=== PATIENT | female | born 1990 | race African-American/Black ===

== ENCOUNTER 2017-10-13 14:14 | Emergency (ER) | payer BC ==
--- NOTE | 2017-10-13 14:47 | ER Document Report ---
ED Medical Screen (RME) - General Chief Complaint: Passed Out Prior to Arrival Stated Complaint: POSSIBLE SYNCOPAL EPISODE Time Seen by Provider: 10/13/17 14:41 Notes: 27-year-old female here status post syncopal episode. She states that she was feeling weak all over her body prior to passing out. She denies lightheadedness dizziness chest pain shortness of breath. Her prehospital EMS blood sugar was 80. She currently has a headache but cannot tell me if the headache was present prior to the syncopal episode. She has congenital nystagmus. EXAM Strength 5/5 all extremities with intact sensation Minimal tenderness to palpation posterior scalp without lesions Left beating non-fatigable nystagmus (patient's baseline per her report) TRAVEL OUTSIDE OF THE [place] IN LAST 30 DAYS: No - Related Data Allergies/Adverse Reactions: No Known Allergies Allergy (Verified 10/13/17 14:16) Past Medical History Neurological Medical History: Reports: Hx Migraine, Hx Seizures Past Surgical History: Reports: Hx Section - Immunizations Immunizations up to date: Yes Hx Diphtheria, Pertussis, Tetanus Vaccination: Yes Physical Exam - Vital signs Vitals: Temp Pulse Resp BP Pulse Ox 98.4 F 72 13 132/82 H 100 10/13/17 14:21 10/13/17 14:21 10/13/17 14:21 10/13/17 14:21 10/13/17 14:21 Course - Vital Signs Vital signs: Temp Pulse Resp BP Pulse Ox 98.4 F 72 13 132/82 H 100 10/13/17 14:21 10/13/17 14:21 10/13/17 14:21 10/13/17 14:21 10/13/17 14:21
[2017-10-13] MEDS ORDERED: ACETAMINOPHEN 325 MG TABLET PO ONE (14:48)
[2017-10-13 15:36] LABS: ABSOLUTE EOSINOPHILS # (AUTO) 0.1 10^3/uL (0.0-0.6); ABSOLUTE LYMPHOCYTES (AUTO) 2.5 10^3/uL (0.5-4.7); ABSOLUTE MONOCYTES (AUTO) 0.2 10^3/uL (0.1-1.4); ABSOLUTE NEUT (AUTO) 2.1 10^3/uL (1.7-8.2); BASOPHILS % (AUTO) 0.6 % (0-2); EOSINOPHILS % (AUTO) 1.4 % (0-6); HEMATOCRIT 27.2 % (36.0-47.0); HEMOGLOBIN 8.5 g/dL (12.0-15.5); LYMPHOCYTES % (AUTO) 50.7 % (13-45); MEAN CORPUSCULAR HEMOGLOBIN 22.9 pg (27.0-33.4); MEAN CORPUSCULAR HGB CONC 31.1 g/dL (32.0-36.0); MEAN CORPUSCULAR VOLUME 74 fl (80-97); MONOCYTES % (AUTO) 4.8 % (3-13); PLATELET COUNT 168 10^3/uL (150-450); RED BLOOD COUNT 3.71 10^6/uL (3.72-5.28); RED CELL DISTRIBUTION WIDTH 16.7 % (11.5-14.0); SEGMENTED NEUTROPHILS % (AUTO) 42.5 % (42-78); TOTAL CELLS COUNTED % (AUTO) 100 %; WHITE BLOOD COUNT 4.9 10^3/uL (4.0-10.5)
[2017-10-13 15:45] LABS: ANION GAP 12 (5-19); BLOOD UREA NITROGEN 9 mg/dL (7-20); CALCIUM 9.6 mg/dL (8.4-10.2); CARBON DIOXIDE 26 mmol/L (22-30); CHLORIDE 105 mmol/L (98-107); GLUCOSE 80 mg/dL (75-110); MAGNESIUM 1.8 mg/dL (1.6-2.3); POTASSIUM 3.5 mmol/L (3.6-5.0); SODIUM 142.6 mmol/L (137-145)
--- NOTE | 2017-10-13 15:45 | RADIOLOGY REPORT (SQ) ---
EXAM DESCRIPTION: CT HEAD WITHOUT COMPLETED DATE/TIME: 10/13/2017 3:28 pm REASON FOR STUDY: MILLAN syncope s/p fall COMPARISON: CT brain 11/13/2015, 01/09/2009 TECHNIQUE: Axial images acquired through the brain without intravenous contrast. Images reviewed wi th bone, brain and subdural windows. Images stored on PACS. All CT scanners at this facility use dose modulation, iterative reconstruction, and/or weight based d osing when appropriate to reduce radiation dose to as low as reasonably achievable (ALARA). [facility]: Dose Right [facility]: CareDose [facility]: Dose Right [facility]: Teradose 4D [facility]: Celiro RADIATION DOSE: CT Rad equipment meets quality standard of care and radiation dose reduction techniq ues were employed. CTDIvol: 64.6 mGy. DLP: 1163 mGy-cm. mGy. LIMITATIONS: None. FINDINGS: VENTRICLES: Normal size and contour. CEREBRUM: No masses. No hemorrhage. No midline shift. No evidence for acute infarction. Normal gra y/white matter differentiation. No areas of low density in the white matter. CEREBELLUM: No masses. No hemorrhage. No alteration of density. No evidence for acute infarction. EXTRAAXIAL SPACES: No fluid collections. No masses. ORBITS AND GLOBE: No intra- or extraconal masses. Normal contour of globe without masses. CALVARIUM: No fracture. PARANASAL SINUSES: No fluid or mucosal thickening. SOFT TISSUES: No mass or hematoma. OTHER: No other significant finding. IMPRESSION: NORMAL BRAIN CT WITHOUT CONTRAST. EVIDENCE OF ACUTE STROKE: NO. COMMENT: Quality ID # [id number]: Final reports with documentation of one or more dose reduction techniques (e.g., Automated exposure control, adjustment of the mA and/or kV according to patient size, use of iterative reconstruction technique) TECHNICAL DOCUMENTATION: JOB ID: [id number] [employer]- All Rights Reserved
--- NOTE | 2017-10-13 15:52 | ER Document Report ---
ED Syncope and Near Syncope - General Chief Complaint: Passed Out Prior to Arrival Stated Complaint: POSSIBLE SYNCOPAL EPISODE Time Seen by Provider: 10/13/17 14:41 Mode of Arrival: Ambulatory Information source: Patient Notes: Patient is a 27-year-old female with a history of iron deficiency anemia who presents to the ER today for syncopal episode at work prior to arrival. Patient states that she felt weak and lightheaded and next thing she knew she was waking up on the floor. She denies any nausea or vomiting, dizziness, pain anywhere. Patient has never had to have any blood transfusions or iron transfusions. She used to be on iron but is not any longer because she has not followed up with her doctor. TRAVEL OUTSIDE OF THE [place] IN LAST 30 DAYS: No - Related Data Allergies/Adverse Reactions: No Known Allergies Allergy (Verified 10/13/17 14:16) Past Medical History - General Information source: Patient - Social History Smoking Status: Never Smoker Chew tobacco use (# tins/day): No Frequency of alcohol use: None Drug Abuse: None Family History: Reviewed & Not Pertinent Patient has suicidal ideation: No Patient has homicidal ideation: No Neurological Medical History: Reports: Hx Migraine, Hx Seizures Renal/ Medical History: Denies: Hx Peritoneal Dialysis Past Surgical History: Reports: Hx Section - Immunizations Immunizations up to date: Yes Hx Diphtheria, Pertussis, Tetanus Vaccination: Yes Review of Systems - Review of Systems Constitutional: See HPI EENT: No symptoms reported Cardiovascular: No symptoms reported Respiratory: No symptoms reported Gastrointestinal: No symptoms reported Genitourinary: No symptoms reported Female Genitourinary: No symptoms reported Musculoskeletal: No symptoms reported Skin: No symptoms reported Hematologic/Lymphatic: No symptoms reported Neurological/Psychological: See HPI Physical Exam - Vital signs Vitals: Temp Pulse Resp BP Pulse Ox 98.4 F 72 13 132/82 H 100 10/13/17 14:21 10/13/17 14:21 10/13/17 14:21 10/13/17 14:21 10/13/17 14:21 - Notes Notes: PHYSICAL EXAMINATION: GENERAL: Well-appearing and in no acute distress. HEAD: Atraumatic, normocephalic. EYES: Horizontal nystagmus, pupils equal round and reactive to light, extraocular movements intact, sclera anicteric, conjunctiva are normal. ENT: ear canals without erythema or foreign body, TMs pearly mccallum with good bony landmarks, nares patent, oropharynx clear without exudates. Moist mucous membranes. NECK: Normal range of motion, supple without lymphadenopathy LUNGS: CTAB and equal. No wheezes rales or rhonchi. HEART: Regular rate and rhythm without murmurs ABDOMEN: Soft, no tenderness. No guarding, no rebound BACK: no vertebral tenderness, normal ROM GI/: no CVA tenderness EXTREMITIES: Normal range of motion, no pitting edema. No cyanosis. NEUROLOGICAL: Cranial nerves grossly intact. Normal sensory/motor exams. PSYCH: Normal mood, normal affect. SKIN: Warm, Dry, normal turgor, no rashes or lesions noted Course - Re-evaluation Re-evalutation: 10/13/17 19:31 EKG reveals normal sinus rhythm without evidence of ischemia or abnormality, patient's hemoglobin here is 8.5. I will place her on iron and have her follow- up with her primary care provider. I did give her a list here primary care providers in the area. - Vital Signs Vital signs: Temp Pulse Resp BP Pulse Ox 97.8 F 65 16 140/87 H 99 10/13/17 16:36 10/13/17 16:36 10/13/17 16:36 10/13/17 16:36 10/13/17 16:36 - Laboratory Result Diagrams: 10/13/17 15:10 10/13/17 15:10 Laboratory results interpreted by me: 10/13/17 10/13/17 15:10 15:10 RBC 3.71 L Hgb 8.5 L Hct 27.2 L MCV 74 L MCH 22.9 L MCHC 31.1 L RDW 16.7 H Lymphocytes % 50.7 H Potassium 3.5 L Discharge - Discharge Clinical Impression: Syncope and collapse Iron deficiency anemia Qualifiers: Iron deficiency anemia type: unspecified iron deficiency Qualified Code(s): D50.9 - Iron deficiency anemia, unspecified Condition: Stable Disposition: HOME, SELF-CARE Additional Instructions: Please take stool softeners, Colace, [id number] as well as the iron as it can cause you to be constipated. Return immediately for any new or worsening symptoms. Follow up with primary care provider, call tomorrow to make followup appointment. Prescriptions: Ferrous Sulfate 325 mg PO DAILY #30 tablet Forms: Return to Work
[2017-10-13 16:39] VITALS: BP 140/87
--- NOTE | 2017-10-13 18:18 | EKG REPORT ---
SEVERITY:- NORMAL ECG - SINUS RHYTHM : Confirmed by: Edgar Mariscal MD 13-Oct-2017 18:18:14
== END 2017-10-13 16:44 | disposition home or self-care (01) ==
LOC: ER 14:14
DX: D50.9 Iron deficiency anemia, unspecified (principal); R55 Syncope and collapse; R53.1 Weakness; R42 Dizziness and giddiness
CPT/HCPCS: 36415; 70450; 80048; 81025; 83735; 84100; 85025; 93005; 93010; 99284

== ENCOUNTER 2017-10-27 21:06 | Emergency (ER) | payer OTHER, BC ==
[2017-10-28] MEDS ORDERED: IBUPROFEN 600 MG TABLET PO ONE (00:15)
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
[2017-10-28 02:35] VITALS: BP 106/64
== END 2017-10-28 02:20 | disposition home or self-care (01) ==
LOC: ER 21:06
DX: S16.1XXA Strain of muscle, fascia and tendon at neck level, initial encounter (principal); S39.012A Strain of muscle, fascia and tendon of lower back, initial encounter; R03.0 Elevated blood-pressure reading, without diagnosis of hypertension; R51 Headache; V43.52XA Car driver injured in collision with other type car in traffic accident, initial encounter
CPT/HCPCS: 72050; 72110; 99283

== ENCOUNTER 2018-04-03 13:35 | Emergency (ER) | payer BC, OTHER ==
--- NOTE | 2018-04-03 14:11 | ER Document Report ---
ED General <NANCY VERMA García - Last Filed: 04/03/18 17:12> - General Mode of Arrival: Medic Information source: Patient TRAVEL OUTSIDE OF THE [place] 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 Patient states she was at work at [employer], waiting to be relieved for lunch when she became light headed, dizzy, developed heart palpitations and hot then proceeded to have a syncopal episode. She states she fell on the floor and hit her head. Patient states she has had multiple syncopal episodes in the past with mother stating it appears to happen around the time the patient get her menstrual cycle. Patient denies any weakness in extremities, fevers or recent illnesses. Patient states her last menstrual cycle was approximately 1 week ago. (VADIM KLEIN) - Related Data Allergies/Adverse Reactions: No Known Allergies Allergy (Verified 10/13/17 14:16) Past Medical History - General Information source: Patient - Social History Smoking Status: Unknown if Ever Smoked Family History: Reviewed & Not Pertinent Neurological Medical History: Reports: Hx Migraine, Hx Seizures Past Surgical History: Reports: Hx Section - Immunizations Immunizations up to date: Yes Hx Diphtheria, Pertussis, Tetanus Vaccination: Yes <VADIM KLEIN - Last Filed: 04/03/18 18:54> Review of Systems - Review of Systems Constitutional: No symptoms reported EENT: No symptoms reported Cardiovascular: See HPI, Palpitations, Syncope, Dizziness, Lightheaded Respiratory: No symptoms reported Gastrointestinal: No symptoms reported Genitourinary: No symptoms reported Female Genitourinary: No symptoms reported Musculoskeletal: No symptoms reported Skin: No symptoms reported Hematologic/Lymphatic: No symptoms reported Neurological/Psychological: See HPI -: Yes All other systems reviewed and negative <VADIM KLEIN - Last Filed: 04/03/18 18:54> Physical Exam <NANCY VERMA - Last Filed: 04/03/18 17:12> <VADIM KLEIN - Last Filed: 04/03/18 18:54> - Vital signs Vitals: Resp 21 H 04/03/18 13:44 - Notes Notes: GENERAL: Alert, interacts well. No acute distress. HEAD: Normocephalic, atraumatic. EYES: Pupils equal, round, and reactive to light. Extraocular movements intact. Right deviation of right eye medially, consistent with history of nystigmatism. ENT: Oral mucosa dry, tongue midline. NECK: Full range of motion. Supple. Trachea midline. LUNGS: Clear to auscultation bilaterally, no wheezes, rales, or rhonchi. No respiratory distress. HEART: Regular rate and rhythm. No murmurs, gallops, or rubs. EXTREMITIES: Moves all 4 extremities spontaneously. NEUROLOGICAL: Alert and oriented x3. Normal speech. cranial nerves II through XII grossly intact. Sensory and motor functions grossly intact. PSYCH: Normal affect, normal mood. SKIN: Warm, dry, normal turgor. No rashes or lesions noted. (VADIM KLEIN) Course - Laboratory Result Diagrams: 04/03/18 13:10 04/03/18 13:10 <NANCY VERMA - Last Filed: 04/03/18 17:12> - Laboratory Result Diagrams: 04/03/18 13:10 04/03/18 13:10 <VADIM KLEIN - Last Filed: 04/03/18 18:54> - Re-evaluation Re-evalutation: 04/03/18 17:12 Patient well-appearing labs within normal limits nonsignificant of the microcytic anemia. Iron panel drawn patient shows very low levels of iron. Will place patient on iron supplementation. 04/03/18 17:13 She does not show any signs of diabetes blood glucose within normal limits. She has a history of having these types of episodes unsure if this was seizure related or possible syncopal reaction however per HPI this is happening multiple times in the last several years. Will refer patient for outpatient follow-up at this time. (NANCY VERMA) - Vital Signs Vital signs: Temp Pulse Resp BP Pulse Ox 97.8 F 11 L 102/67 98 04/03/18 17:24 04/03/18 17:12 04/03/18 17:12 04/03/18 17:08 - Laboratory Laboratory results interpreted by me: 07/03/18 07/03/18 13:10 13:10 Hgb 9.0 L Hct 28.4 L MCV 75 L MCH 23.9 L MCHC 31.8 L RDW 15.2 H Lymphocytes % 47.4 H Iron 17.2 L Ferritin 3.50 L Discharge <NANCY VERMA - Last Filed: 04/03/18 17:12> <VADIM KLEIN - Last Filed: 04/03/18 18:54> - Discharge Clinical Impression: Syncopal episodes Qualifiers: Syncope type: unspecified Qualified Code(s): R55 - Syncope and collapse Anemia Qualifiers: Anemia type: iron deficiency Iron deficiency anemia type: unspecified iron deficiency Qualified Code(s): D50.9 - Iron deficiency anemia, unspecified Disposition: HOME, SELF-CARE Instructions: Anemia, Iron Deficiency ([facility]), Syncopal Episode ([facility]) Prescriptions: Ferrous Sulfate 325 mg PO BID #60 tablet Referrals: RACHAEL PRESLEY MD [ACTIVE STAFF] - Follow up in 1 week Scribe Documentation - Scribe Written by Reagane:: Susana Hernandez, 04/03/2018 14:29 acting as scribe for :: Jerson <VADIM KLEIN - Last Filed: 04/03/18 18:54>
[2018-04-03] MEDS ORDERED: NORMAL SALINE 1000 ML 1,000 ML IV ONE (14:14)
[2018-04-03 14:38] LABS: ABSOLUTE EOSINOPHILS # (AUTO) 0.1 10^3/uL (0.0-0.6); ABSOLUTE MONOCYTES (AUTO) 0.4 10^3/uL (0.1-1.4); ABSOLUTE NEUT (AUTO) 2.8 10^3/uL (1.7-8.2); BASOPHILS % (AUTO) 0.6 % (0-2); EOSINOPHILS % (AUTO) 1.9 % (0-6); HEMATOCRIT 28.4 % (36.0-47.0); LYMPHOCYTES % (AUTO) 47.4 % (13-45); MEAN CORPUSCULAR HEMOGLOBIN 23.9 pg (27.0-33.4); MEAN CORPUSCULAR HGB CONC 31.8 g/dL (32.0-36.0); MEAN CORPUSCULAR VOLUME 75 fl (80-97); MONOCYTES % (AUTO) 5.8 % (3-13); PLATELET COUNT 209 10^3/uL (150-450); RED BLOOD COUNT 3.77 10^6/uL (3.72-5.28); RED CELL DISTRIBUTION WIDTH 15.2 % (11.5-14.0); SEGMENTED NEUTROPHILS % (AUTO) 44.3 % (42-78); TOTAL CELLS COUNTED % (AUTO) 100 %; WHITE BLOOD COUNT 6.3 10^3/uL (4.0-10.5)
[2018-04-03 14:46] LABS: ALANINE AMINOTRANSFERASE 21 U/L (9-52); ALBUMIN 4.4 g/dL (3.5-5.0); ALKALINE PHOSPHATASE 49 U/L (38-126); ANION GAP 14 (5-19); ASPARTATE AMINO TRANSFERASE 23 U/L (14-36); BILIRUBIN,DIRECT 0.3 mg/dL (0.0-0.4); BILIRUBIN,TOTAL 0.3 mg/dL (0.2-1.3); BLOOD UREA NITROGEN 18 mg/dL (7-20); CALCIUM 9.4 mg/dL (8.4-10.2); CARBON DIOXIDE 25 mmol/L (22-30); CHLORIDE 104 mmol/L (98-107); GLUCOSE 83 mg/dL (75-110); SODIUM 142.8 mmol/L (137-145)
[2018-04-03 15:05] LABS: APPEARANCE,URINE CLEAR; BILIRUBIN,URINE NEGATIVE (NEGATIVE); COLOR,URINE STRAW; GLUCOSE, URINE NEGATIVE (NEGATIVE); KETONES,URINE NEGATIVE (NEGATIVE); LEUKOCYTE ESTERASE,URINE NEGATIVE (NEGATIVE); NITRITE,URINE NEGATIVE (NEGATIVE); PROTEIN,URINE NEGATIVE (NEGATIVE); URINE SPECIFIC GRAVITY 1.013; UROBILINOGEN,URINE NEGATIVE mg/dL (<2.0)
[2018-04-03 15:25] LABS: ABSOLUTE RETICS # 0.072 10^6/uL (0.028-0.122); RETICULOCYTE COUNT (AUTO) 1.89 % (0.66-2.85)
[2018-04-03 15:41] LABS: IRON(TIBC) 17.2 ug/dL (37-170)
[2018-04-03 15:47] LABS: URINE AMPHETAMINES SCREEN NEGATIVE; URINE BARBITURATES SCREEN NEGATIVE; URINE BENZODIAZEPINES SCREEN NEGATIVE; URINE COCAINE SCREEN NEGATIVE; URINE MARIJUANA (THC) SCREEN NEGATIVE; URINE METHADONE SCREEN NEGATIVE; URINE PHENCYCLIDINE SCREEN NEGATIVE
[2018-04-03 17:19] VITALS: BP 102/67
== END 2018-04-03 17:25 | disposition home or self-care (01) ==
LOC: ER 13:35
DX: R55 Syncope and collapse (principal); D50.9 Iron deficiency anemia, unspecified; H55.00 Unspecified nystagmus; R00.2 Palpitations; R42 Dizziness and giddiness
CPT/HCPCS: 99284; 96360; 36415; 82607; 82728; 82746; 83540; 83550; 83735; 84443; 84703; 85025; 85045; 80053; 81001; 80307; J7030

== ENCOUNTER 2018-11-05 18:50 | Emergency (ER) | payer BC ==
[2018-11-05] MEDS ORDERED: ACETAMINOPHEN 325 MG TABLET PO ONE (21:52)
[2018-11-05] MEDS ORDERED: ACETAMINOPHEN 325 MG TABLET ONE (21:52)
--- NOTE | 2018-11-05 22:37 | ER Document Report ---
ED Cardiac - General Chief Complaint: Chest Wall Pain Stated Complaint: CHEST PAIN Time Seen by Provider: 11/05/18 22:36 Mode of Arrival: Ambulatory Information source: Patient Notes: HISTORY OF PRESENT ILLNESS: Patient is a 28-year-old female with no significant past medical history who presents with chest pain. Patient denies taking oral contraceptives, no recent trips or surgical procedures, no prolonged periods of immobility, does not smoke. Location: Left-sided "under my breast" Onset: Sudden Alleviation: None Provocation: Using the left arm, moving Quality: Sharp Radiation: None Severity: Currently mild, moderate at its worst Timing: Intermittent History of CAD: None Associated symptoms: Denies cough or congestion, no fevers or chills, no shortness of breath, no swelling of the extremities REVIEW OF SYSTEMS: CONSTITUTIONAL : Denies fever or chills, no sweats. Denies recent illness. EENT: Denies eye, ear, throat, or mouth pain or symptoms. Denies nasal or sinus congestion. CARDIOVASCULAR: Positive for chest pain. Denies swelling of the legs. RESPIRATORY: Denies cough, cold, or chest congestion. Denies shortness of breath or difficulty breathing. Denies wheezing. GASTROINTESTINAL: Denies abdominal pain. Denies nausea, vomiting, or diarrhea. Denies constipation. GENITOURINARY: Denies difficulty urinating, painful urination, burning, frequency, or blood in urine. FEMALE GENITOURINARY: Denies vaginal bleeding, abnormal or irregular periods. MUSCULOSKELETAL: Denies neck or back pain or joint pain or swelling. SKIN: Denies rash or skin lesions. HEMATOLOGIC : Denies easy bruising or bleeding. LYMPHATIC: Denies swollen, enlarged glands. NEUROLOGICAL: Denies altered mental status or loss of consciousness. Denies headache. Denies weakness or paralysis or loss of use of either side. Denies problems with gait or speech. Denies sensory or motor loss. PSYCHIATRIC: Denies anxiety or stress or depression. All other systems reviewed and negative. PHYSICAL EXAMINATION: GENERAL: Well-appearing, well-nourished and in no acute distress. HEAD: Atraumatic, normocephalic. No scalp deformity, depression, or crepitance. EYES: Pupils are 3 mm and equal/round/reactive to light, extraocular movements intact, sclera anicteric, conjunctiva are normal. ENT: Nares patent bilaterally, oropharynx. Moist mucous membranes. No tonsil hypertrophy. NECK: Normal range of motion, supple without lymphadenopathy. LUNGS: Breath sounds present, equal, and clear to auscultation bilaterally. No wheezes, rales, or rhonchi. CHEST: Easily reproducible tenderness on palpation to the left inferior and lateral rib cage. HEART: Regular rate and rhythm without murmurs, rubs, or gallops. 2+ peripheral pulses. Normal capillary refill. ABDOMEN: Soft, nontender, nondistended. Normoactive bowel sounds. No guarding, no rebound. No masses appreciated. BACK: Normal contour, no midline tenderness. Rectal exam deferred. GENITAL/PELVIC: Deferred. EXTREMITIES: Normal range of motion, no pitting or edema. No cyanosis. NEUROLOGICAL: No focal neurological deficits. Moves all extremities spontaneously and on command. PSYCH: Normal mood, normal affect. No suicidal thoughts/ideations. No homocidal thoughts/ideations. No hallucinations. SKIN: Warm, dry, normal turgor, no rashes or lesions noted. ASSESSMENT AND PLAN: This patient is a 28-year-old female who presents with chest pain that has consistent with noncardiac etiology such as costochondritis. 1. Will obtain EKG, chest x-ray, and reassess after intramuscular Toradol. 2. Will likely discharge. TRAVEL OUTSIDE OF THE [place] IN LAST 30 DAYS: No - Related Data Allergies/Adverse Reactions: No Known Allergies Allergy (Verified 10/13/17 14:16) Past Medical History - General Information source: Patient - Social History Smoking Status: Never Smoker Chew tobacco use (# tins/day): No Frequency of alcohol use: None Drug Abuse: None Lives with: Family Family History: Reviewed & Not Pertinent Patient has suicidal ideation: No Patient has homicidal ideation: No - Past Medical History Cardiac Medical History: Reports: None Pulmonary Medical History: Reports: None EENT Medical History: Reports: None Neurological Medical History: Reports: Hx Migraine, Hx Seizures Endocrine Medical History: Reports: None Renal/ Medical History: Reports: None. Denies: Hx Peritoneal Dialysis Malignancy Medical History: Reports: None GI Medical History: Reports: None Musculoskeletal Medical History: Reports None Skin Medical History: Reports None Psychiatric Medical History: Reports: None Traumatic Medical History: Reports: None Infectious Medical History: Reports: None Surgical Hx: Negative Past Surgical History: Reports: None, Hx Section - Immunizations Immunizations up to date: Yes Hx Diphtheria, Pertussis, Tetanus Vaccination: Yes Physical Exam - Vital signs Vitals: Temp Pulse Resp BP Pulse Ox 98.5 F 85 16 130/79 H 100 11/05/18 19:06 11/05/18 19:06 11/05/18 19:06 11/05/18 19:06 11/05/18 19:06 Course - Re-evaluation Re-evalutation: 11/06/18 01:22 Chest x-ray is negative. Patient has had resolution of symptoms after intramuscular Toradol. She will be discharged home with return precautions and follow-up as needed. Patient voices understanding and agreeing with the plan. - Vital Signs Vital signs: Temp Pulse Resp BP Pulse Ox 98.5 F 85 16 130/79 H 100 11/05/18 19:06 11/05/18 19:06 11/05/18 19:06 11/05/18 19:06 11/05/18 19:06 - Diagnostic Test Radiology reviewed: Image reviewed, Reports reviewed - EKG Interpretation by Me EKG shows normal: Sinus rhythm Rate: Normal Rhythm: NSR [place]/QRS: No: Right axis deviation, Left axis deviation, RBBB, LBBB, IVCD, LAHB/LAFB, LPHB/LPFB, Bifasicular block Voltage: No: Increased voltage, Consistant with LVH, Decreased voltage, Thro ughout, Limb leads P Waves: No: GARO, LAE, Absent, AV Dissociation, Other When compared to previous EKG there are: Previous EKG unavailable Discharge - Discharge Clinical Impression: Acute costochondritis, Non-cardiac chest pain Condition: Good Disposition: HOME, SELF-CARE Instructions: Chest Wall Pain ([facility]) Additional Instructions: You have been evaluated in the Emergency Department for chest pain that is not related to your heart. Please follow-up with your primary physician as instructed if needed. Return to the Emergency Department if you experience worsening pain, having difficulty breathing, or any other concerning symptoms. Prescriptions: Diclofenac Sodium 75 mg PO BID #30 tablet. Print Language: [place]an
[2018-11-05] MEDS ORDERED: KETOROLAC TROMETHAMINE 60 MG/2 ML SDV IM ONE (23:42)
--- NOTE | 2018-11-06 00:30 | RADIOLOGY REPORT (SQ) ---
EXAM DESCRIPTION: XR CHEST 1 VIEW COMPLETED DATE/TME: 11/05/2018 23:42 CLINICAL HISTORY: 28 years, Female, Chest pain COMPARISON: None. NUMBER OF VIEWS: 1 TECHNIQUE: Portable chest LIMITATIONS: None. FINDINGS: Heart size at the upper limits of normal. Lungs are clear. No pneumothorax IMPRESSION: Heart size at the upper limits of normal. Lungs are clear copyright 2010 [employer]- All Rights Reserved
[2018-11-06 01:37] VITALS: BP 124/72
--- NOTE | 2018-11-06 21:30 | EKG REPORT ---
SEVERITY:- ABNORMAL ECG - SINUS RHYTHM CONSIDER LEFT VENTRICULAR HYPERTROPHY : Confirmed by: Carly Torres 06-Nov-2018 21:29:03
== END 2018-11-06 01:37 | disposition home or self-care (01) ==
LOC: ER 18:50
DX: M94.0 Chondrocostal junction syndrome [Tietze] (principal); R07.89 Other chest pain
CPT/HCPCS: 93005; 99283; 96372; 71045; 93010; J1885

== ENCOUNTER 2020-04-17 17:20 | Emergency (ER) | payer BC ==
--- NOTE | 2020-04-17 17:50 | ER Document Report ---
ED Medical Screen (RME) - General Stated Complaint: PAINFUL URINATION Time Seen by Provider: 04/17/20 17:46 Mode of Arrival: Ambulatory Information source: Patient Notes: 29-year-old female patient presents emergency department chief complaint of left flank pain x1 week. Patient reports that the pain is now radiating to the left lower quadrant of her abdomen. She went to urgent care where she had blood in her urine but no signs of infection. They referred her to the emergency department with concern for a kidney stone. Patient has no history of kidney stones. Denies any nausea, vomiting, fever or chills. Left CVA tenderness present. I have greeted and performed a rapid initial assessment of this patient. A comprehensive ED assessment and evaluation of the patient, analysis of test results and completion of the medical decision making process will be conducted by additional ED providers. I have specifically instructed the patient or family members with the patient to immediately return to any nursing staff should anything change in the patient's condition or with their chief complaint. TRAVEL OUTSIDE OF THE [place] IN LAST 30 DAYS: No - Related Data Allergies/Adverse Reactions: No Known Allergies Allergy (Verified 10/13/17 14:16) Past Medical History Neurological Medical History: Reports: Hx Migraine, Hx Seizures Renal/ Medical History: Denies: Hx Peritoneal Dialysis Past Surgical History: Reports: Hx Section - Immunizations Immunizations up to date: Yes Hx Diphtheria, Pertussis, Tetanus Vaccination: Yes Physical Exam - Vital signs Vitals: Temp Pulse Resp BP Pulse Ox 98.9 F 74 20 121/73 100 04/17/20 17:27 04/17/20 17:27 04/17/20 17:27 04/17/20 17:27 04/17/20 17:27 Course - Vital Signs Vital signs: Temp Pulse Resp BP Pulse Ox 98.9 F 74 20 121/73 100 04/17/20 17:27 04/17/20 17:27 04/17/20 17:27 04/17/20 17:27 04/17/20 17:27
[2020-04-17 19:12] LABS: ABSOLUTE EOSINOPHILS # (AUTO) 0.2 10^3/uL (0.0-0.6); ABSOLUTE LYMPHOCYTES (AUTO) 3.3 10^3/uL (0.5-4.7); ABSOLUTE MONOCYTES (AUTO) 0.5 10^3/uL (0.1-1.4); ABSOLUTE NEUT (AUTO) 3.2 10^3/uL (1.7-8.2); BASOPHILS % (AUTO) 0.4 % (0-2); EOSINOPHILS % (AUTO) 2.8 % (0-6); HEMATOCRIT 34.8 % (36.0-47.0); HEMOGLOBIN 11.4 g/dL (12.0-15.5); LYMPHOCYTES % (AUTO) 46.2 % (13-45); MEAN CORPUSCULAR HEMOGLOBIN 27.4 pg (27.0-33.4); MEAN CORPUSCULAR HGB CONC 32.9 g/dL (32.0-36.0); MEAN CORPUSCULAR VOLUME 84 fl (80-97); MONOCYTES % (AUTO) 6.5 % (3-13); PLATELET COUNT 193 10^3/uL (150-450); RED BLOOD COUNT 4.17 10^6/uL (3.72-5.28); RED CELL DISTRIBUTION WIDTH 14.7 % (11.5-14.0); SEGMENTED NEUTROPHILS % (AUTO) 44.1 % (42-78); TOTAL CELLS COUNTED % (AUTO) 100 %; WHITE BLOOD COUNT 7.2 10^3/uL (4.0-10.5)
[2020-04-17 19:31] LABS: ALBUMIN 4.9 g/dL (3.5-5.0); ALKALINE PHOSPHATASE 52 U/L (38-126); ANION GAP 8 (5-19); APPEARANCE,URINE CLEAR; ASPARTATE AMINO TRANSFERASE 24 U/L (14-36); BILIRUBIN,TOTAL 0.2 mg/dL (0.2-1.3); BILIRUBIN,URINE NEGATIVE (NEGATIVE); BLOOD UREA NITROGEN 16 mg/dL (7-20); CARBON DIOXIDE 28 mmol/L (22-30); CHLORIDE 101 mmol/L (98-107); COLOR,URINE STRAW; GLUCOSE 94 mg/dL (75-110); GLUCOSE, URINE NEGATIVE (NEGATIVE); KETONES,URINE NEGATIVE (NEGATIVE); LEUKOCYTE ESTERASE,URINE NEGATIVE (NEGATIVE); NITRITE,URINE NEGATIVE (NEGATIVE); POTASSIUM 4.1 mmol/L (3.6-5.0); PROTEIN,URINE NEGATIVE (NEGATIVE); TOTAL PROTEIN 8.4 g/dL (6.3-8.2); URINE SPECIFIC GRAVITY 1.014; UROBILINOGEN,URINE NEGATIVE mg/dL (<2.0)
--- NOTE | 2020-04-17 21:22 | RADIOLOGY REPORT (SQ) ---
CLINICAL INDICATION: L flank pain, eval for stone. . TECHNIQUE: Noncontrast spiral axial CT imaging was obtained of the abdomen and pelvis with multiplanar reconstructions. This exam was performed according to our departmental dose-optimization program, which includes automated exposure control, adjustment of the mA and/or kV according to patient size and/or use of iterative reconstruction techniques. COMPARISON: None. CORRELATION: None. FINDINGS: Abdomen: The lung bases are grossly clear. The heart is top normal. No evidence of pleural or pericardial fluid. The liver is of normal size contour and attenuation. The gallbladder is nondistended without inflammatory change. The pancreas is of grossly normal contour on this noncontrast examination. The spleen is unremarkable. The adrenals are unremarkable. The kidneys appear grossly normal without evidence of urolithiasis or hydronephrosis. Possible mild fullness to the left collecting system or parapelvic cyst. There is no evidence of free air. No free fluid. No bulky adenopathy. Abdominal aorta is nonaneurysmal. Pelvis: The bowel is nonobstructed. The bowel is unopacified with oral contrast. Pelvic contents are unremarkable. The appendix is normal. Visualized bones are unremarkable. IMPRESSION: Imaging is degraded by patient motion, with resultant artifact. The best possible images were obtained. No acute intra-abdominal process is identified. The cause of the patient's left flank pain is not identified on this examination..
--- NOTE | 2020-04-18 00:11 | ER Document Report ---
ED General - General Chief Complaint: Flank Pain Stated Complaint: PAINFUL URINATION Time Seen by Provider: 04/17/20 17:46 Mode of Arrival: Ambulatory Notes: 29-year-old female presented with bilateral low back pain and abdominal pain for approximately 1 week. States that her symptoms are intermittent. States that s he usually takes ibuprofen which alleviates her pain. Last menstrual period was last week. She denies any changes in appetite. no nausea, no vomiting, no diarrhea no constipation. States that she is occasionally bloated. Patient states that she was seen at her urgent care where they noted blood in her urine and they sent her over to the ER. Patient denies actually seeing blood in her urine. Denies any pain with urination. Denies any vaginal discharge or irritation. Denies being sexually active. Does not take anything for pain since yesterday. She does not know how long her symptoms once. She does not describe the type of pain that she is in. Patient continues to ask if she can go home. Was resting peacefully in the bed prior to me entering the room. No fevers or chills. TRAVEL OUTSIDE OF THE [place] IN LAST 30 DAYS: No - Related Data Allergies/Adverse Reactions: No Known Allergies Allergy (Verified 10/13/17 14:16) Past Medical History - General Information source: Patient - Social History Smoking Status: Never Smoker Family History: Reviewed & Not Pertinent Neurological Medical History: Reports: Hx Migraine, Hx Seizures Renal/ Medical History: Denies: Hx Peritoneal Dialysis Past Surgical History: Reports: Hx Section - Immunizations Immunizations up to date: Yes Hx Diphtheria, Pertussis, Tetanus Vaccination: Yes Review of Systems - Review of Systems Constitutional: No symptoms reported EENT: No symptoms reported Cardiovascular: No symptoms reported Respiratory: No symptoms reported Gastrointestinal: See HPI Genitourinary: No symptoms reported Female Genitourinary: No symptoms reported Musculoskeletal: See HPI Skin: No symptoms reported Hematologic/Lymphatic: No symptoms reported Neurological/Psychological: No symptoms reported Physical Exam - Vital signs Vitals: Temp Pulse Resp BP Pulse Ox 98.9 F 74 20 121/73 100 04/17/20 17:27 04/17/20 17:27 04/17/20 17:27 04/17/20 17:27 04/17/20 17:27 Interpretation: Normal - Notes Notes: Adult General: GENERAL: Alert, interacts well. No acute distress HEAD: Normocephalic, atraumatic EYES: Pupils equal, round and reactive to light. Extraocular movements intact. Horizontal nystagmus ENT: Airway patent. Nares patent. NECK: Full range of motion. Supple. Trachea midline. No lymphadenopathy. LUNGS: Clear to auscultation bilaterally, no wheezes, rales, or rhonchi. No respiratory distress. Nontender chest wall. HEART: Regular rate and rhythm. No murmurs, rubs or gallops. ABDOMEN: Soft, tender to deep palpation in bilateral right lower abdomen and left upper abdomen. Nondistended. (-) Atkinson sign. Bowel sounds present in all 4 quadrants. No rebound, guarding or masses. GENITOURINARY: Deferred EXTREMITIES: Moves all 4 extremities spontaneously. BACK: Low back is tender to palpation along paraspinals. No CVA tenderness. No cervical, thoracic, lumbar midline tenderness. No saddle anesthesia, normal distal neurovascular exam. Moves all extremities with full range of motion. NEUROLOGICAL: Alert and oriented x3. Normal speech. Strength 5/ 5 in all extremities. PSYCH: Normal affect, normal mood. SKIN: Warm, dry, normal turgor. No rashes or lesions noted. Course - Re-evaluation Re-evalutation: 04/18/20 00:14 Patient was evaluated. Her CT scan shows no acute intra-abdominal processes. No urolithiasis, appendix is normal, bowel is nonobstructed. Her hemoglobin is slightly decreased at 11.4. After review of her chart this appears to be her normal baseline. As there are no acute intra-abdominal processes, vitals are within normal limits. Patient is nontoxic. Her urinalysis shows moderate blood but no leukocyte esterase or nitrites. I discussed with patient that I do not have a good cause of her back and abdominal pain. I recommend that she follow- up with her primary care provider soon as possible. Also recommend that she continue to take ibuprofen for pain. Patient does not desire additional work-up for her pain at this time her medications. Is requesting to go home. As her CT scan is unremarkable and her labs do not show any pertinent findings I will discharge the patient and have her have close follow-up with her primary care provider. Patient is instructed to follow-up to the emergency department if she has worsening symptoms or the development of new symptoms. - Vital Signs Vital signs: Temp Pulse Resp BP Pulse Ox 98.9 F 74 20 121/73 100 04/17/20 17:27 04/17/20 17:27 04/17/20 17:27 04/17/20 17:27 04/17/20 17:27 - Laboratory Result Diagrams: 04/17/20 18:40 04/17/20 18:40 Laboratory results interpreted by me: 04/17/20 04/17/20 04/17/20 18:40 18:40 18:40 Hgb 11.4 L Hct 34.8 L RDW 14.7 H Lymph % (Auto) 46.2 H Total Protein 8.4 H Urine Blood MODERATE H Discharge - Discharge Clinical Impression: Abdominal pain Qualifiers: Abdominal location: generalized Qualified Code(s): R10.84 - Generalized abdominal pain Anemia Qualifiers: Anemia type: unspecified type Qualified Code(s): D64.9 - Anemia, unspecified Condition: Stable Disposition: HOME, SELF-CARE Instructions: Abdominal Pain ([facility]) Additional Instructions: Your CT scan was unremarkable. Your hemoglobin was slighty decreased at 11.4 . Please follow-up with your primary care provider soon as possible to evaluate for the blood in your urine and your anemia. Please return to the emergency department if you have worsening symptoms or development of new symptoms.
[2020-04-18 00:39] VITALS: BP 143/84
== END 2020-04-18 00:38 | disposition home or self-care (01) ==
LOC: ER 17:20
DX: R10.84 Generalized abdominal pain (principal); D64.9 Anemia, unspecified; R30.9 Painful micturition, unspecified; M54.5 Low back pain
CPT/HCPCS: 36415; 74176; 80053; 81001; 81025; 83690; 85025; 87086; 99284